=== PATIENT | female | born 1960 | race Caucasian/White ===

== ENCOUNTER 2016-10-20 13:52 | Observation (INO) | payer MEDICARE, MEDICAID ==
[~2016-10-20] VITALS: Ht 160 cm; Wt 88.5 kg
[~2016-10-20 13:52] MED LIST: ABILIFY20 MG PO; ABILIFY30 MG PO; ALBUTEROL2.5 MG/3 M; BENZONATATE200 MG PO; BUSPIRONE HCL30 MG PO; CLEOCIN HCL300 MG PO; CYCLOBENZAPRINE10 MG PO; DALIRESP500 MCG PO; FLEXERIL10 MG PO; HYDROCODONE-APA1 TAB PO; INDERAL10 MG PO; IPRAT-ALBUT 0.5-3 ML UPD; LEVAQUIN250 MG PO; LEVAQUIN500 MG PO; LEVOTHROID75 MCG PO; LEVOTHYROXINE137 MCG PO; MACROBID100 MG PO; MEDROL DOSE PACK4 MG PO; MUCINEX DM ER1 EAC1 PO; MUCINEX600 MG PO; MYCOSTATIN15 GM; NAPROSYN500 MG PO; NEURONTIN600 MG PO; NEXIUM40 MG PO; NICODERM C1 PATCH .1 TRANSDERM; NICODERM C1 PATCH .2 TRANSDERM; NORCO 10/325 TA1 TA1 PO; OMEPRAZOLE40 MG PO; OMNICEF300 MG PO; OXYBUTYNIN CHLOR5 MG PO; PERMETHRIN60 GM TOPICAL; PHENERGAN25 M1; PREDNISONE10 MG PO; PREDNISONE20 MG PO; PRINIVIL10 MG PO; PROAIR HFA8.5 GM INH; PROPRANOLOL HCL20 MG PO; PULMICORT0.5 MG/21 INH; PULMICORT0.5 MG/21 UPD; SINGULAIR10 MG PO; SYNTHROID75 MCG PO; TRICOR145 MG PO; VALIUM5 MG PO; VIIBRYD20 MG PO; ZOLOFT100 MG PO; ZOLOFT50 MG PO
[2016-10-20 15:10] LABS: BASOPHILS 0.4 % (0.0-2.0); HEMATOCRIT 39.5 % (36.0-48.0); HEMOGLOBIN 12.5 g/dL (12-16); IMMATURE GRANULOCYTES 0.2 % (0-5); LYMPHOCYTES 26.7 % (15-50); MCH 30.4 pg (26.0-34.0); MCHC 31.6 g/dL (31.0-37.0); MCV 96.1 fL (80.0-100.0); MEAN PLATELET VOLUME 11.1 fL (7.4-10.4); MONOCYTES 6.5 % (2-11); NEUTROPHILS 64.2 % (40-80); PLATELET COUNT 129 10x3/uL (130-400); RBC 4.11 10x6/uL (4.00-5.40); RDW 13.5 % (11.5-14.5); WBC 5.1 10x3/uL (4.8-10.8)
[2016-10-20 15:33] LABS: CALC OSMOLALITY 283 mosm/kg (275-300); CALCIUM 8.9 mg/dL (8.5-10.1); CHLORIDE - SERUM 103 mmol/L (98-107); CREATININE - SERUM 0.7 mg/dL (0.6-1.3); GLUCOSE 105 mg/dL (74-106); POTASSIUM - SERUM 4.1 mmol/L (3.5-5.1); SODIUM 143 mmol/L (136-145); UREA NITROGEN 11 mg/dL (7-18); eGFR NON AFRICAN AMERICAN > 90 mL/min (90-120)
[2016-10-20 15:34] LABS: TROPONIN-I < 0.017 ng/mL (0.000-0.060)
[2016-10-20 16:52] LABS: CKMB 0.2 U/L (0.0-3.6); CREATINE KINASE 20 UL (21-215)
[2016-10-20 17:54] LABS: APPEARANCE CLEAR (CLEAR); BILIRUBIN NEGATIVE (NEGATIVE); COLOR YELLOW (YELLOW); GLUCOSE NEGATIVE (NEGATIVE); KETONE NEGATIVE (NEGATIVE); LEUKOCYTE ESTERASE 1+ (NEGATIVE); NITRITE NEGATIVE (NEGATIVE); PROTEIN NEGATIVE (NEGATIVE); UROBILINOGEN NORMAL (NORMAL)
[2016-10-20 17:55] LABS: BACTERIA FEW /hpf (NONE SEEN); RED CELLS - URINE 0-5 /hpf (0-5); WHITE CELLS - URINE 0-5 /hpf (0-5)
--- NOTE | 2016-10-20 18:25 | NUR ---
PT TO ROOM VIA WHEELCHAIR FROM ER. ALERT AND ORIENTED. WILL ADMIT. TELE APPLIED.
[2016-10-20] MEDS ORDERED: VALIUM10 MG PO (18:29)
[2016-10-20] MEDS ORDERED: HYDROCODONE-APA1 TAB PO (18:29)
[2016-10-20] MEDS ORDERED: ATIVAN0.5 MG PO (18:29)
[2016-10-20 18:30] VITALS: BP 153/95; Ht 160 cm; Wt 88.5 kg
[2016-10-20] MEDS ORDERED: MELATONIN10 M1 PO (18:30)
[2016-10-20 18:39] LABS: CREATINE KINASE 15 UL (21-215); TROPONIN-I < 0.017 ng/mL (0.000-0.060)
[2016-10-20 20:52] VITALS: BP 131/81
--- NOTE | 2016-10-20 21:20 | NUR ---
PT AWAKE, ALERT, ORIENTED, CONCERNED THAT SHE HAS NOT RECEIVED ANY OF HER MEDICATIONS. I HAVE PAGED ROSALES POLLOCK, SALES REPRESENTATIVE DOOR TO DOOR FOR [employer]ALTHAR FOR ORDERS. PT IS REQUESTING HER ABILIFY, LORAZEPAM, NORCO, AND MELATONIN. WILL CONTINUE TO MONITOR CLOSELY. BED LOW, CALL LIGHT IN REACH, SIDE RAILS X 2, HOB 30 DEGREES. PT STATES SHE FEELS HER HEART FLUTTERING, HOWEVER WHEN CHECKED WITH DISABILITY BENEFITS SPECIALIST, SHE IS 80'S NS.
[2016-10-20 23:51] LABS: CREATINE KINASE 40 UL (21-215); TROPONIN-I < 0.017 ng/mL (0.000-0.060)
[2016-10-21 01:33] VITALS: BP 100/71
[2016-10-21 05:29] LABS: CKMB 0.1 U/L (0.0-3.6); CREATINE KINASE 16 UL (21-215); PHOSPHOROUS 5.3 mg/dL (2.5-4.9); POTASSIUM - SERUM 4.2 mmol/L (3.5-5.1)
[2016-10-21 05:35] LABS: TROPONIN-I < 0.017 ng/mL (0.000-0.060)
[2016-10-21 06:04] VITALS: BP 135/93
[2016-10-21 07:47] VITALS: BP 131/69
[2016-10-21 11:31] VITALS: BP 116/77
[2016-10-21] MEDS ORDERED: TOPROL XL25 MG PO (12:39)
--- NOTE | 2016-10-21 13:47 | NUR ---
Patient Name: JOJO CORREA Admission Status: ER Accout number: [id number] Admission Date: 10-20-2016 : 1960 Admission Diagnosis: Attending: BREANA Current LOS: 1 Anticipated DC Date: 10-21-2016 Planned Disposition: Home Primary Insurance: MEDICARE A & B Discharge Planning Comments: * Is the patient Alert and Oriented? Yes 0 * How many steps to enter\exit or inside your home? 2 0 * PCP DR. LOZADA 0 * Pharmacy [facility] [place] 0 * Preadmission Environment Home with Family 0 * ADLs Independent 0 * Equipment Nebulizer Oxygen 0 * Other Equipment HOME OXYGEN ONLY [facility] - MEDICAL EQUIPMENT PROVIDER PREFERENCE 0 * List name and contact numbers for known caregivers / representatives who currently or will assist patient after discharge: JOELLE CORREA, COUSIN, 0 * Community resources currently utilized Other 0 * Please name any agencies selected above. [facility] 0 * Additional services required to return to the preadmission environment? No 0 * Can the patient safely return to the preadmission environment? Yes 0 * Has this patient been hospitalized within the prior 30 days at any hospital? No 0 CM MET WITH PT IN ROOM TO DISCUSS DISCHARGE PLANNING AND NEEDS. PT REPORTS LIVING AT HOME INDEPENDENTLY WITH HER COUSIN. PT HAS NEBULIZER AND HOME OXYGEN FROM [facility]. PT HAS NO OUTSIDE SERVICES ASSISTING IN THE HOME. CM DISCUSSED AVAILABILITY OF HOME HEALTH, REHAB SERVICES AND MEDICAL EQUIPMENT. PT DENIES DISCHARGE NEEDS, REPORTS HAVING NO WAY HOME FOR DISCHARGE TODAY. PT HAS CALLED HER COUSIN WHO CANNOT FIND ANYONE TO PICK HER UP. PT USES [facility] FOR HER MEDICAL APPOINTMENTS. CM CALLED [facility], , SPOKE TO GERONIMO WHO ARRANGED TRANSPORTATION FOR TODAY BETWEEN 2PM AND 3PM, CONFIRMATION NUMBER [id number]. PT AND BEDSIDE NURSE NOTIFIED. NO FURTHER DISCHARGE NEEDS IDENTIFIED. Tufting Creeler: David Dutton
--- NOTE | 2016-10-21 14:36 | CN ---
PATIENT NAME:JOJO GOYAL MEDICAL RECORD: [id number] : 58 LOCATION:D.M2 D.2133 ADMIT DATE: 10/20/16 ACCOUNT: [id number] CONSULTING PHYSICIAN: ADEEL GARCIA MD REFERRING PHYSICIAN: TRACEY TOUSSAINT MD DATE OF CONSULTATION: 10/21/2016 HISTORY OF PRESENT ILLNESS: A 56-year-old female with previous history of hypertension, was started on medication at that time. By her report engaged in lifestyle modification including exercise and adjustment in diet and was actually off the medications, has been off for quite some time. Admitted yesterday with hypertension and left shoulder pain. Shoulder pain is more musculoskeletal. She also reports of intermittent palpitations, flutter, occasional PVC on exam, suspect this is just simply increased sensation from compensatory pause loading in the face of elevated blood pressure. We are asked to see her concerning her cardiovascular status. PAST MEDICAL HISTORY: Includes: 1. History of hypertension, on no medications currently. 2. Anxiety. 3. Bipolar disorder. 4. Chronic obstructive pulmonary disease. 5. Hypothyroidism, on replacement. MEDICATIONS: Typically include: 1. Synthroid 137 mcg every day. 2. Prilosec 20 mg p.o. every day. 3. Zoloft 50 every day. 4. Ativan 0.5 q.6 p.r.n. 5. [place] 10/325 q.6 hours p.r.n. 6. Neurontin 600 t.i.d. 7. Valium 10 p.o. b.i.d. p.r.n. 8. Abilify 30 q.h.s. 9. Duoneb q.4. 10. ProAir 2 puffs q.6 hours p.r.n. ALLERGIES: KEFLEX, TRAMADOL. SOCIAL HISTORY: She is a nondrinker, does smoke less than a pack a day. She is able to take care of her ADLs. No set exercise program. REVIEW OF SYSTEMS: The patient reports easy bruising but reports no swollen glands. The patient reports no fever, no night sweats, no significant weight gain, no significant weight loss. No significant exercise tolerance. The patient reports no dry eyes, no irritation, no vision change. Patient reports no difficulty hearing and no ear pain. Patient reports no frequent nose bleeds or nose and sinus problems. Patient reports on arm pain on exertion. No shortness of breath while lying down. No history of heart murmur. Patient reports no cough, no wheezing or coughing up blood. Patient reports no abdominal pain, no vomiting. Normal appetite. No diarrhea and not vomiting blood. No nausea and no constipation. Patient reports no incontinence. No difficulty urinating. No hematuria. No increased frequency. Patient reports no muscle aches. No weakness, no arthralgias, no back pain. No swelling of the extremities. Patient reports no abnormal mole, no jaundice, no rashes. Reports no loss of consciousness. No weakness and no numbness. No seizures, dizziness, CONSULT REPORT [id number] SUNNY,JOJO ИРИНА or headaches. The patient reports no depression, no sleep disturbance, feeling safe in a relationship and no alcohol abuse. Patient reports on fatigue. Reports no runny nose or sinus pressure. No itching, no hives, and no frequent sneezing. PHYSICAL EXAMINATION: GENERAL: Pleasant female in no acute distress, somewhat blunted affect. VITAL SIGNS: Blood pressure 131/69, pulse 62 and regular. HEENT: Normocephalic, atraumatic. NECK: No JVD or bruit. HEART: Regular. LUNGS: Jacobs are clear. ABDOMEN: Soft, nontender. EXTREMITIES: Pulse well preserved, 2+ with no edema. NEUROLOGICAL: Grossly intact. DIAGNOSTIC DATA: ECG is normal. Serial cardiac enzymes are negative. IMPRESSION: Recurrent hypertension. At this point in time, I would start low dose beta blockade for both hypertensive and antiarrhythmic effect. We would check echocardiographic study to check for left ventricular mass to help guide therapy. A long discussion readjusting lifestyle to minimize medications, although from talking to Ms. Goyal not sure this is going to be successful long-term. I would consider outpatient nuclear study at some point. Okay to discharge from a cardiovascular standpoint. TRANSINT:[id number] Voice Confirmation ID: [id number] DOCUMENT ID: [id number] ADEEL GARCIA MD at 1436 CC: [id number] DICTATION DATE: 10/21/[address] PHOTOGRAPHER: 10/21/16 1032 ADM IN [place] [id number] [place] [address]
--- NOTE | 2016-10-21 15:01 | NUR ---
DISCHARGE INSTRUCTIONS GIVEN TO PATIENT WAITING ON [facility]. UNDERSTANDING INSTRUCTIONS. TO AUCTIONEER TOBACCO VIA WC.
--- NOTE | 2016-10-27 08:42 | EC ---
PATIENT:JOJO CORREA DATE OF SERVICE: 10/20/16 SEX: F MEDICAL RECORD: [id number] DATE OF : [birth year] LOCATION:D.M2 D.213 AGE OF PATIENT: 56 ADMISSION DATE: 10/20/16 REFERRING PHYSICIAN: INTERPRETING PHYSICIAN: ADEEL GARCIA MD ECHOCARDIOGRAM REPORT ECHO CHARGES 4 ECHO COMPLETE CLINICAL DIAGNOSIS: HTN/LVH/PALPITATIONS ECHOCARDIOGRAPHIC MEASUREMENTS (adult normal given) AC root (d.<3.7cm) 3.2 LV Septum d (<1.2 cm> 1.9 Valve Excursion 1.0 LV Septum (systole) 2.2 Left Atria (s.<4.0cm> 4.1 LVPW d(<1.2cm) 1.7 RV (d.<2.3cm) 3.2 LVPW (sytole) 1.9 LV diastole(<5.6CM) 4.3 MV E-F(>70mm/sec) LV systole 3.1 LVOT Diameter 1.6 MV exc.(>10mm) 1.3 Est.ejection fraction (50-75%) Pericardial Effusion N DOPPLER: LVIT A 81.0 E 56.0 LA RVSP 19 LVOT 89 AOP1/2T Asc. Ao 68 RVOT 128 RA PA 105 AV Gradient Peak 6.59 AV Mean 3.61 AV Area 1.4 MV Gradient Peak 3.36 MV Mean 1.13 MV Area COMMENTS: Tire Repair Mechanic: Ronal MATTHEWS General Operator:10 Dr. Lopez TAPE# PACS DATE OF SERVICE: 10/21/2016 Adequate 2D echo, color flow Doppler and M-Mode. LVH present. LV internal dimensions are normal. Wall motion is normal. EF is greater than ____. Aortic valve is tricuspid. No stenosis by Doppler interrogation. The left atrium is normal. Mitral valve shows no prolapse. Trace MR. Right-sided chamber is normal. Trace TR. TRANSINT:[id number] Voice Confirmation ID: [id number] DOCUMENT ID: [id number] ECHOCARDIOGRAM REPORT [id number] JOJO CORREAADEEL ROLAND MD at 0842 CC: [id number] DICTATION DATE: 10/21/16 1314 BANK CONSULTANT: 10/22/16 0101 DIS IN 10/21/16 [facility] [address] [place] [address]
== END 2016-10-21 15:03 | disposition home or self-care (01) ==
LOC: D.ER 13:52 → D.M2 15:57 → OBSVTIME 15:57 → D.M2 15:57
PROVIDERS: Nurse Practitioner Acute Care; ADMIT Family Medicine
DX: I10 Essential (primary) hypertension (principal); R00.2 Palpitations; G89.29 Other chronic pain; F41.9 Anxiety disorder, unspecified; F31.9 Bipolar disorder, unspecified; J44.9 Chronic obstructive pulmonary disease, unspecified; E03.9 Hypothyroidism, unspecified; M79.7 Fibromyalgia; F60.3 Borderline personality disorder; G47.33 Obstructive sleep apnea (adult) (pediatric); Z72.0 Tobacco use

== ENCOUNTER 2016-11-02 13:40 | Emergency (ER) | payer MEDICARE, MEDICAID ==
[2016-10-20 18:30] VITALS: BMI 34.6
[~2016-11-02 13:40] MED LIST changes: +ATIVAN0.5 MG PO; +MELATONIN10 M1 PO; +TOPROL XL25 MG PO; +VALIUM10 MG PO
[2016-11-02 15:17] LABS: BASOPHILS 0.5 % (0.0-2.0); EOSINOPHILS 2.1 % (0-7); HEMOGLOBIN 12.1 g/dL (12-16); IMMATURE GRANULOCYTES 0.2 % (0-5); LYMPHOCYTES 21.7 % (15-50); MCH 30.6 pg (26.0-34.0); MCHC 31.8 g/dL (31.0-37.0); MEAN PLATELET VOLUME 11.3 fL (7.4-10.4); MONOCYTES 4.6 % (2-11); NEUTROPHILS 70.9 % (40-80); PLATELET COUNT 137 10x3/uL (130-400); RBC 3.96 10x6/uL (4.00-5.40); RDW 13.5 % (11.5-14.5); WBC 5.6 10x3/uL (4.8-10.8)
[2016-11-02 15:31] LABS: ALBUMIN 3.5 g/dL (3.4-5.0); ALKALINE PHOSPHATASE 92 U/L (46-116); ALT (SGPT) 35 U/L (10-68); BILIRUBIN - TOTAL 0.38 mg/dL (0.2-1.3); CALC OSMOLALITY 280 mosm/kg (275-300); CALCIUM 8.6 mg/dL (8.5-10.1); CARBON DIOXIDE 33.4 mmol/L (21.0-32.0); CHLORIDE - SERUM 104 mmol/L (98-107); CREATININE - SERUM 0.7 mg/dL (0.6-1.3); GLUCOSE 105 mg/dL (74-106); SODIUM 142 mmol/L (136-145); UREA NITROGEN 8 mg/dL (7-18); eGFR NON AFRICAN AMERICAN > 90 mL/min (90-120)
[2016-11-03] MEDS ORDERED: BACLOFEN10 MG PO (17:19)
== END 2016-11-02 18:41 | disposition home or self-care (01) ==
LOC: D.ER 13:40
PROVIDERS: Physician Assistant
DX: I10 Essential (primary) hypertension (principal); R51 Headache; J44.9 Chronic obstructive pulmonary disease, unspecified; F17.200 Nicotine dependence, unspecified, uncomplicated

== ENCOUNTER 2016-11-03 11:48 | Observation (INO) | payer MEDICARE ==
[~2016-11-03] VITALS: Ht 160 cm; Wt 88.5 kg
[~2016-11-03 11:48] MED LIST changes: -OMEPRAZOLE40 MG PO; +PRILOSEC20 MG PO
[2016-11-03 13:06] LABS: UDS - AMPHET NEGATIVE QUAL (NEGATIVE); UDS - BARB NEGATIVE QUAL (NEGATIVE); UDS - BENZO POSITIVE QUAL (NEGATIVE); UDS - COCAINE NEGATIVE QUAL (NEGATIVE); UDS - METH NEGATIVE QUAL (NEGATIVE); UDS - OPIATE POSITIVE QUAL (NEGATIVE); UDS - PCP NEGATIVE QUAL (NEGATIVE); UDS - THC NEGATIVE QUAL (NEGATIVE)
[2016-11-03 13:13] LABS: BASOPHILS 0.2 % (0.0-2.0); EOSINOPHILS 2.4 % (0-7); HEMOGLOBIN 11.8 g/dL (12-16); IMMATURE GRANULOCYTES 0.2 % (0-5); LYMPHOCYTES 29.6 % (15-50); MCH 30.6 pg (26.0-34.0); MCHC 31.1 g/dL (31.0-37.0); MEAN PLATELET VOLUME 11.3 fL (7.4-10.4); MONOCYTES 5.8 % (2-11); NEUTROPHILS 61.8 % (40-80); PLATELET COUNT 135 10x3/uL (130-400); RBC 3.85 10x6/uL (4.00-5.40)
[2016-11-03 13:22] LABS: MCV 98.7 fL (80.0-100.0)
[2016-11-03 13:29] LABS: ALBUMIN 3.5 g/dL (3.4-5.0); ALKALINE PHOSPHATASE 90 U/L (46-116); ALT (SGPT) 35 U/L (10-68); BILIRUBIN - TOTAL 0.28 mg/dL (0.2-1.3); CALC OSMOLALITY 281 mosm/kg (275-300); CALCIUM 8.3 mg/dL (8.5-10.1); CARBON DIOXIDE 35.3 mmol/L (21.0-32.0); CHLORIDE - SERUM 103 mmol/L (98-107); CREATININE - SERUM 0.8 mg/dL (0.6-1.3); GLUCOSE 109 mg/dL (74-106); POTASSIUM - SERUM 4.1 mmol/L (3.5-5.1); SODIUM 141 mmol/L (136-145); eGFR NON AFRICAN AMERICAN 78 mL/min (90-120)
[2016-11-03 13:30] LABS: APPEARANCE HAZY (CLEAR); BILIRUBIN NEGATIVE (NEGATIVE); COLOR YELLOW (YELLOW); GLUCOSE NEGATIVE (NEGATIVE); KETONE NEGATIVE (NEGATIVE); LEUKOCYTE ESTERASE 1+ (NEGATIVE); NITRITE NEGATIVE (NEGATIVE); PROTEIN NEGATIVE (NEGATIVE); SPECIFIC GRAVITY 1.015 (1.005-1.020)
[2016-11-03 13:31] LABS: BACTERIA MODERATE /hpf (NONE SEEN); EPITHELIAL CELLS 0-5 /hpf (0-5); GRANULAR CAST OCC /lpf (NONE SEEN); MUCUS >1+ /lpf (NONE SEEN)
[2016-11-03 13:37] LABS: T4 THYROXIN - FREE 1.12 ng/dL (0.76-1.46); T4 THYROXINE 9.3 ug/dL (4.7-13.3); THYROID STIMULATING HORMONE 0.43 uIU/mL (0.36-3.74)
[2016-11-03 13:44] LABS: UREA NITROGEN 12 mg/dL (7-18)
--- NOTE | 2016-11-03 16:42 | NUR ---
RECEIVED TO ROOM 2215 FROM ER VIA . ORIENTED TO ROOM AND CALL LIGHT SYSTEM. VSS. CALL LIGHT IN REACH. WILL CONTINUE WITH PLAN OF CARE.
[2016-11-03 16:46] VITALS: BP 110/71
[2016-11-03 17:15] VITALS: BP 110/71; Ht 160 cm; Wt 88.5 kg
[2016-11-03] MEDS ORDERED: BACLOFEN10 MG PO (17:19)
--- NOTE | 2016-11-03 17:20 | NUR ---
OFFERED SCDs BUT REFUSED
--- NOTE | 2016-11-03 18:23 | NUR ---
NORCO PO PER C/O PAIN OF 8 IN LOWER BACK. NO OTHER CHANGES IN INITIAL ASSESSMENT. STILL REFUSES SCDs. PASSWORD OBTAINED AND PLACED IN CHART. CALL LIGHT IN REACH. WILL CONTINUE WITH PLAN OF CARE.
[2016-11-03 19:00] VITALS: BP 137/70
--- NOTE | 2016-11-03 20:00 | NUR ---
ASSESSMENT PER FLOWSHEET. IV PATENT RT THUMB OF NS AT 75CC'S/HR SITE CLEAR. REFUSES SCD'S. SITTING UPRIGHT IN BED SR UP X2 CALL LIGHT WITHIN REACH.
--- NOTE | 2016-11-03 20:30 | NUR ---
MEDS GIVEN PER MAR.
--- NOTE | 2016-11-04 | NUR ---
EYES CLOSED RESPIRATIONS WITH EASE AND UNLABORED.
--- NOTE | 2016-11-04 03:15 | NUR ---
EYES CLOSED RESPIRATIONS WITH EASE AND UNLABORED. DENIES NEEDS.
[2016-11-04 06:24] LABS: BASOPHILS 0.3 % (0.0-2.0); EOSINOPHILS 2.3 % (0-7); HEMATOCRIT 35.6 % (36.0-48.0); HEMOGLOBIN 11.3 g/dL (12-16); IMMATURE GRANULOCYTES 0.3 % (0-5); LYMPHOCYTES 33.4 % (15-50); MCHC 31.7 g/dL (31.0-37.0); MCV 97.8 fL (80.0-100.0); MEAN PLATELET VOLUME 11.4 fL (7.4-10.4); MONOCYTES 4.6 % (2-11); NEUTROPHILS 59.1 % (40-80); PLATELET COUNT 116 10x3/uL (130-400); RBC 3.64 10x6/uL (4.00-5.40); RDW 13.7 % (11.5-14.5)
[2016-11-04 06:37] LABS: WBC 3.5 10x3/uL (4.8-10.8)
[2016-11-04 06:48] LABS: ALBUMIN 2.9 g/dL (3.4-5.0); ALKALINE PHOSPHATASE 80 U/L (46-116); ALT (SGPT) 32 U/L (10-68); CALC OSMOLALITY 280 mosm/kg (275-300); CALCIUM 8.4 mg/dL (8.5-10.1); CARBON DIOXIDE 32.7 mmol/L (21.0-32.0); CHLORIDE - SERUM 103 mmol/L (98-107); CREATININE - SERUM 0.6 mg/dL (0.6-1.3); GLUCOSE 109 mg/dL (74-106); POTASSIUM - SERUM 3.8 mmol/L (3.5-5.1); PROTEIN - SERUM 6.1 g/dL (6.4-8.2); SODIUM 141 mmol/L (136-145); UREA NITROGEN 10 mg/dL (7-18); eGFR NON AFRICAN AMERICAN > 90 mL/min (90-120)
--- NOTE | 2016-11-04 07:15 | NUR ---
ASSESSMENT PER FLOW SHEET.PT VERY HARD TO WAKE UP THIS AM.SHE OPENS HER EYES INT.SHE IS WITHOUT SIGNS OF PAIN OR DISTRESS.BRUISES AND SCRATCHES NOTED TO BILATERAL ARMS.CALL LIGHT IN REACH.MONITOR
[2016-11-04 09:52] VITALS: BP 189/97
[2016-11-04 11:48] VITALS: BP 171/97
--- NOTE | 2016-11-04 13:55 | NUR ---
MEDS ORDERED FOR BP 190/95
[2016-11-04 13:58] VITALS: BP 190/95
--- NOTE | 2016-11-04 14:50 | NUR ---
REPEAT BP 149/78
[2016-11-04] MEDS ORDERED: CATAPRES0.1 MG PO (14:55)
--- NOTE | 2016-11-04 15:31 | NUR ---
DISCHARGE INSTRUCTIONS,STATES UNDERSTANDING.IV DCD WITH CATH INTACT.DANITA CALLED [facility] TO PICK PT UP FOR TRANSPORT.
--- NOTE | 2016-11-04 15:41 | NUR ---
CM CALLED THE [facility] BUS FOR PATIENT AND THEY ARE PICKING UP DUNIA AFTER 3:30. PATIENT IS READY AND NURSE (ERIAK) AWARE.
[2016-11-04 15:49] VITALS: BP 149/78
--- NOTE | 2016-11-04 16:04 | NUR ---
LEFT UNIT VIA WHEELCHAIR FOR TRANSPORT HOME.
== END 2016-11-04 16:04 | disposition home or self-care (01) ==
LOC: D.ER 11:48 → OBSVTIME 15:30 → D.MS 15:30
PROVIDERS: Emergency Medicine; ADMIT Family Medicine
DX: I95.2 Hypotension due to drugs (principal); G47.33 Obstructive sleep apnea (adult) (pediatric); F31.9 Bipolar disorder, unspecified; F60.3 Borderline personality disorder; M79.7 Fibromyalgia; G89.29 Other chronic pain; J44.9 Chronic obstructive pulmonary disease, unspecified; I10 Essential (primary) hypertension; E03.9 Hypothyroidism, unspecified; J45.909 Unspecified asthma, uncomplicated; F41.9 Anxiety disorder, unspecified; R41.82 Altered mental status, unspecified

== ENCOUNTER 2016-11-17 08:31 | Day surgery (SDC) | payer MEDICARE ==
[~2016-11-17] VITALS: Ht 160 cm; Wt 89.1 kg
[~2016-11-17 08:31] MED LIST changes: +BACLOFEN10 MG PO; +CATAPRES0.1 MG PO
[2016-11-17 09:15] VITALS: BP 138/92; Ht 160 cm; Wt 89.1 kg
[2016-11-17 09:46] LABS: HEMOGLOBIN 13.4 g/dL (12-16); MCH 31.1 pg (26.0-34.0); MCHC 32.7 g/dL (31.0-37.0); MCV 95.1 fL (80.0-100.0); MEAN PLATELET VOLUME 12.1 fL (7.4-10.4); RBC 4.31 10x6/uL (4.00-5.40); RDW 13.3 % (11.5-14.5); WBC 4.9 10x3/uL (4.8-10.8)
--- NOTE | 2016-11-17 11:46 | NUR ---
1140 NORCO 10MG PO GIVEN FOR BACK/LEG PAIN RATED 8/10 ORDERED. PT. DRINKING COLA. PT. HAS FAMILY IN ROOM
--- NOTE | 2016-11-17 12:39 | NUR ---
1220--PT VOIDS WITHOUT DIFFICULTY, IV DC'D. PT UP TP DRESS AT THIS TIME. JUANJO FINNEY 1240--DISCHARGE INSTRUCTIONS GIVEN, PT VERBALIZES UNDERSTANDING. PT OFF UNIT VIA WC. JUANJO FINNEY
--- NOTE | 2016-11-22 13:01 | OP ---
PATIENT NAME: JOJO CORERA MEDICAL RECORD: [id number] :58 LOCATION:[facility] ADMISSION DATE: SURGEON: DAVID MARMOLEJO DO DATE OF OPERATION: 11/17/2016 PROCEDURE: EGD with biopsies. SCOPE: Olympus video gastroscope. MEDICATIONS: Propofol 200 mg IV per anesthesia. INDICATIONS: Dysphagia, heartburn, nausea, generalized abdominal pain. FINDINGS: Informed consent was given. The patient was made comfortable with the above medication. After reaching an adequate level of sedation by slow IV push, the patient was placed on her left side. The endoscope was then advanced under direct visualization to the second portion of the duodenum. In the proximal third of the esophagus, she did have 2 patches of heterotopic gastric mucosa. The middle and distal thirds of the esophagus appeared normal. At the GE junction, there was some very mild LA class A reflux-induced esophagitis at the GE junction. A small sliding hiatal hernia could be visualized from the distal esophagus. Endoscope was advanced through the GE junction and retroflexed to confirm that there was a small sliding hiatal hernia involving the cardia. In the stomach, there was diffuse granularity and erythema consistent with possible gastritis. Random biopsies were taken from the body, incisura, and antrum of the stomach. They were sent for histology and to rule out H. pylori. The endoscope was advanced through the pylorus into the duodenum where the bulb and second portion of the duodenum appeared normal. The endoscope was then withdrawn from the patient. The patient tolerated the procedure well and there were no complications. ESTIMATED BLOOD LOSS: Less than 3 cc. IMPRESSION: 1. Heterotopic gastric mucosa present in the proximal third of the esophagus. 2. Mild LA class A reflux-induced esophagitis at the GE junction. 3. Small sliding hiatal hernia involving the cardia of the stomach. 4. Diffuse gastric granularity and erythema consistent with possible gastritis, biopsies taken. PLAN AND RECOMMENDATIONS: 1. Discharge home when recovery parameters are met. 2. GERD diet and reflux precautions. 3. Increase omeprazole to 40 mg daily times 8 weeks and decrease back to 20 mg daily with additional supplementation of Zantac 150 mg q.h.s. while taking omeprazole in the morning if needed for symptoms. 4. Barium esophagram regarding the dysphagia. TRANSINT:[id number] Voice Confirmation ID: [id number] DOCUMENT ID: [id number] OPERATIVE REPORT [id number] JOJO CORREA NATHAN A DO at 1301 CC: [id number] DICTATION DATE: 11/17/16 1100 EQUIPMENT MAINTENANCE SUPERINTENDENT: 11/17/16 1305 [facility] 11/17/16 [place] [id number] [place] [id number]
== END 2016-11-17 12:40 | disposition home or self-care (01) ==
LOC: D.OPS 08:31
PROVIDERS: Anesthesiology
DX: R13.10 Dysphagia, unspecified (principal); K21.0 Gastro-esophageal reflux disease with esophagitis; R11.0 Nausea; R10.9 Unspecified abdominal pain; K44.9 Diaphragmatic hernia without obstruction or gangrene; J45.909 Unspecified asthma, uncomplicated; G47.30 Sleep apnea, unspecified; I10 Essential (primary) hypertension; E03.9 Hypothyroidism, unspecified; E66.9 Obesity, unspecified; Z68.34 Body mass index [BMI] 34.0-34.9, adult

== ENCOUNTER 2016-11-19 14:11 | Emergency (ER) | payer MEDICARE ==
[2016-11-17 09:15] VITALS: BMI 34.8
[2016-11-19 15:16] LABS: BASOPHILS 0.2 % (0-2); EOSINOPHILS 2.9 % (0-7); HEMATOCRIT 40.4 % (36.0-48.0); HEMOGLOBIN 13.1 g/dL (12-16); LYMPHOCYTES 27.3 % (15-50); MCH 31.3 pg (26.0-34.0); MCHC 32.4 g/dL (31.0-37.0); MCV 96.7 fL (80.0-100.0); MEAN PLATELET VOLUME 11.3 fL (7.4-10.4); MONOCYTES 6.9 % (2-11); NEUTROPHILS 62.7 % (40-80); PLATELET COUNT 150 10x3/uL (130-400); RBC 4.18 10x6/uL (4.00-5.40); RDW 13.2 % (11.5-14.5); WBC 4.5 10x3/uL (4.8-10.8)
[2016-11-19 15:36] LABS: APPEARANCE CLEAR (CLEAR); BACTERIA MODERATE /hpf (NONE SEEN); BILIRUBIN NEGATIVE (NEGATIVE); COLOR YELLOW (YELLOW); GLUCOSE NEGATIVE (NEGATIVE); KETONE NEGATIVE (NEGATIVE); LEUKOCYTE ESTERASE TRACE (NEGATIVE); NITRITE NEGATIVE (NEGATIVE); PROTEIN TRACE mg/dL (NEGATIVE); RED CELLS - URINE 0-5 /hpf (0-5); SPECIFIC GRAVITY 1.015 (1.005-1.020); UROBILINOGEN NORMAL (NORMAL)
[2016-11-19 15:43] LABS: ALBUMIN 3.2 g/dL (3.4-5.0); ANION GAP 12.3 mmol/L (8-16); BILIRUBIN - TOTAL 0.48 mg/dL (0.2-1.3); CALCIUM 7.8 mg/dL (8.5-10.1); CARBON DIOXIDE 27.1 mmol/L (21.0-32.0); CREATININE - SERUM 0.9 mg/dL (0.6-1.3); POTASSIUM - SERUM 3.4 mmol/L (3.5-5.1); PROTEIN - SERUM 6.7 g/dL (6.4-8.2)
== END 2016-11-19 19:12 | disposition home or self-care (01) ==
LOC: D.ER 14:11
PROVIDERS: Family Medicine
DX: E86.0 Dehydration (principal); R53.1 Weakness; J44.9 Chronic obstructive pulmonary disease, unspecified; I10 Essential (primary) hypertension; M79.7 Fibromyalgia; F32.9 Major depressive disorder, single episode, unspecified

== ENCOUNTER 2016-11-26 20:23 | Observation (INO) | payer MEDICARE ==
[~2016-11-26] VITALS: Ht 160 cm; Wt 90.1 kg
[~2016-11-26 20:23] MED LIST changes: +OMEPRAZOLE40 MG PO; -PRILOSEC20 MG PO
[2016-11-26 22:28] LABS: BASOPHILS 0.4 % (0-2); EOSINOPHILS 2.3 % (0-7); HEMATOCRIT 39.6 % (36.0-48.0); HEMOGLOBIN 12.8 g/dL (12-16); IMMATURE GRANULOCYTES 0.1 % (0-5); MCH 31.2 pg (26.0-34.0); MCHC 32.3 g/dL (31.0-37.0); MCV 96.6 fL (80.0-100.0); MEAN PLATELET VOLUME 11.3 fL (7.4-10.4); MONOCYTES 6.7 % (2-11); NEUTROPHILS 56.5 % (40-80); PLATELET COUNT 155 10x3/uL (130-400); RDW 13.5 % (11.5-14.5); WBC 6.9 10x3/uL (4.8-10.8)
[2016-11-26 22:57] LABS: ALBUMIN 3.4 g/dL (3.4-5.0); ALKALINE PHOSPHATASE 83 U/L (46-116); ALT (SGPT) 28 U/L (10-68); BILIRUBIN - TOTAL 0.27 mg/dL (0.2-1.3); CALC OSMOLALITY 281 mosm/kg (275-300); CALCIUM 8.2 mg/dL (8.5-10.1); CARBON DIOXIDE 35.4 mmol/L (21.0-32.0); CHLORIDE - SERUM 105 mmol/L (98-107); GLUCOSE 100 mg/dL (74-106); POTASSIUM - SERUM 3.3 mmol/L (3.5-5.1); PROTEIN - SERUM 6.6 g/dL (6.4-8.2); SODIUM 141 mmol/L (136-145); UREA NITROGEN 14 mg/dL (7-18); eGFR NON AFRICAN AMERICAN 61 mL/min (90-120)
[2016-11-26 23:07] LABS: THYROID STIMULATING HORMONE 1.31 uIU/mL (0.36-3.74); TROPONIN-I < 0.017 ng/mL (0.000-0.060)
[2016-11-27] VITALS (7 sets, daily range): BP systolic 104–152; BP diastolic 52–88; Ht 160 cm; Wt 90.1 kg
[2016-11-27] MEDS ORDERED: OXYBUTYNIN CHLOR5 MG PO
--- NOTE | 2016-11-27 00:15 | NUR ---
REC FROM ER VIA WC. ALERT/ORIENTED X 4. AMBULATED TO BED WITH STEADY GAIT. IV IN L ARM INTACT SL. REQUESTED PAIN MEDICATION FOR C/O CHRONIC BACK PAIN LEVEL 7 ON NUMBER SCALE. EDUCATED ABOUT THE BLOOD PRESSURE LOWERING EFFECTS OF HYDROCODONE. CHECKED HER B/P AT 104/62. PULSE AT 55. REQUESTED SOME ICE WATER AND LIGHTS OFF TO SLEEP. ORIENTED TO ROOM AND CALL LIGHT.
--- NOTE | 2016-11-27 02:16 | NUR ---
RESTING ON RIGHT SIDE WITH EYES CLOSED SNORING LIGHTLY. AROUSES EASILY, DENIES ANY NEEDS. NS INFUSING AT 100ML/HR TO LEFT AC.
--- NOTE | 2016-11-27 10:46 | NUR ---
PATIENT WONDERING WHEN SHE WILL GET AM MEDS, SHE SAYS MY ANXIETY IS HIGH. PAGED DR. SUERO.
--- NOTE | 2016-11-27 10:54 | NUR ---
DR. SUERO CALLED BACK AND STATED HIS NURSE PRACTITIONER ROSALES WILL BE HERE SHORTLY AND SHE WILL TAKE OF IT.
--- NOTE | 2016-11-27 11:00 | NUR ---
LET PATIENT KNOW THAT I SPOKE TO DR. SUERO AND NURSE PRACTITIONER WILL BE THE ONE TO MAKE ROUNDS SOON.
[2016-11-27 12:29] LABS: CKMB 0.3 U/L (0.0-3.6); CREATINE KINASE 17 UL (21-215)
[2016-11-27 12:30] LABS: TROPONIN-I < 0.017 ng/mL (0.000-0.060)
--- NOTE | 2016-11-27 12:31 | NUR ---
PATIENT IS ANXIOUS AND SHE SAYS SHE WOULD LIKE AN ATIVAN, PROVIDED 0.5 MG ATIVAN PO NOW.
--- NOTE | 2016-11-27 12:37 | NUR ---
PATIENT REQUESTS PAIN MED SHE REFERS TO IT "MY HYDRO". PROVIDED PATIENT NORCO PER ORDER, SHE RATES HER PAIN 8/10 IN BACK MOSTLY.
--- NOTE | 2016-11-27 14:00 | NUR ---
PATIENT'S IV IN LEFT AC AND SHE HAS REQUESTED THAT IT BE MOVED. WILL LOOK SHORTLY.
--- NOTE | 2016-11-27 15:54 | NUR ---
PATIENT REQUESTS IV BE RESITED, DENNIS HENDRIX RN IN TO LOOK AT RIGHT FOREARM, ATTEMPTED X1 UNSUCCESSFUL. WILL GET ANOTHER MURSE TO TRY.
--- NOTE | 2016-11-27 16:00 | NUR ---
TELEMETRY ORDERED, BUT NO AVAILABILITY UNLESS PATIENT HAS ACTIVE CHEST PAIN. SCD'S ON PATIENT.
--- NOTE | 2016-11-27 16:32 | NUR ---
PATIENT REQUESTS MED FOR NAUSEA, ZOFRAN PROVIDED, SEE MAR.
--- NOTE | 2016-11-27 17:36 | NUR ---
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
[2016-11-27 18:53] LABS: CKMB 0.2 U/L (0.0-3.6); CREATINE KINASE 16 UL (21-215); TROPONIN-I < 0.017 ng/mL (0.000-0.060)
--- NOTE | 2016-11-27 23:21 | NUR ---
NURSE ROUNDS 20:00 - PT AWAKE, ALERT, ORIENTED, LYING IN BED REQUESTING HER PRN PAIN MEDICATION AND BEDTIME MEDS. PT WAS HARD TO UNDERSTAND SHE WAS SLURRING HER WORDS. I TOLD HER SHE COULD HAVE HER PRN NORCO IF HER B/P WAS STABLE, AND SHE WAS NOT FEELING SYNCOPAL. PT AGREED. CONTINUE TO MONITOR CLOSELY. BED LOW, CALL LIGHT IN REACH, SIDE RAILS X 2, HOB 20 DEGREES.
--- NOTE | 2016-11-27 23:31 | NUR ---
PRN MELATONIN REQUESTED BY PT HELD R/T PT SLEEPING WHEN I WENT IN TO ADMINISTER IT. CONTINUE TO MONITOR CLOSELY.
[2016-11-28] VITALS (8 sets, daily range): BP systolic 126–149; BP diastolic 59–95
[2016-11-28 00:45] LABS: CKMB 2.9 U/L (0.0-3.6); CREATINE KINASE 16 UL (21-215)
[2016-11-28 00:46] LABS: TROPONIN-I < 0.017 ng/mL (0.000-0.060)
--- NOTE | 2016-11-28 01:59 | NUR ---
PT LYING IN BED ON RIGHT SIDE, EYES CLOSED, RESPIRATIONS EVEN AND UNLABORED. PT EASILY ROUSABLE TO VERBAL STIMULI. CONTINUE TO MONITOR CLOSELY.
--- NOTE | 2016-11-28 04:39 | NUR ---
PT UP TO BATHROOM WITH MINIMAL ASSIST. PT REQUESTING PRN PAIN MEDICATION. DENIES ANY OTHER NEEDS. PT STILL WEARING O2 VIA NC. PT DID CALL FOR ASSIST TO BATHROOM AND WILL CONTINUE TO DO SO. CONTINUE TO MONITOR CLOSELY. BED LOW, CALL LIGHT IN REACH, SIDE RAILS X 2, HOB 10 DEGREES.
[2016-11-28 05:25] LABS: CALC OSMOLALITY 283 mosm/kg (275-300); CALCIUM 8.2 mg/dL (8.5-10.1); CARBON DIOXIDE 28.5 mmol/L (21.0-32.0); CHLORIDE - SERUM 107 mmol/L (98-107); CREATININE - SERUM 0.7 mg/dL (0.6-1.3); GLUCOSE 127 mg/dL (74-106); SODIUM 142 mmol/L (136-145); UREA NITROGEN 11 mg/dL (7-18)
[2016-11-28 05:26] LABS: POTASSIUM - SERUM 4.6 mmol/L (3.5-5.1); eGFR NON AFRICAN AMERICAN > 90 mL/min (90-120)
[2016-11-28 05:55] LABS: BASOPHILS 0.5 % (0-2); EOSINOPHILS 3.3 % (0-7); HEMATOCRIT 38.5 % (36.0-48.0); HEMOGLOBIN 12.1 g/dL (12-16); LYMPHOCYTES 39.3 % (15-50); MCH 30.4 pg (26.0-34.0); MCHC 31.4 g/dL (31.0-37.0); MCV 96.7 fL (80.0-100.0); MEAN PLATELET VOLUME 11.2 fL (7.4-10.4); NEUTROPHILS 51.9 % (40-80); RBC 3.98 10x6/uL (4.00-5.40); RDW 13.3 % (11.5-14.5)
[2016-11-28 05:57] LABS: PLATELET COUNT 117 10x3/uL (130-400)
--- NOTE | 2016-11-28 07:30 | NUR ---
CHARTS CHECKED. SHIFT ASSESSMENT COMPLETED. INTRODUCED MYSELF TO PT PRIMARY RN FOR TODAYS SHIFT. PT RESTING QUIETLY AND DENIES ANY CURRENT NEEDS AT THIS TIME. CL IN REACH. WILL CTM.
--- NOTE | 2016-11-28 12:24 | NUR ---
PT CALLED REQUESTING PRN PAIN MEDICATION AND WAS PROVIDED WITH IT. PT SITTING UP IN BED EATING LUNCH. DENIES ANY FURTHER NEEDS AT THIS TIME. CL IN REACH. WILL CPOC.
--- NOTE | 2016-11-28 15:00 | NUR ---
EKG COMPLETED ORDERED. EKG NORMAL SINUS.
--- NOTE | 2016-11-28 19:17 | NUR ---
RESUMED CARE OF PT, LYING IN BED WITH EYES CLOSED RESPIRATIONS EVEN AND UNLABORED ON 2LPM VIA NC. RIGHT HAND INFUSING NS @ 75. NO NEEDS NOTED AT THIS TIME. CALL LIGHT IN REACH. WILL CONTINUE TO MONITOR. SEE NURSE ASSESSMENT.
--- NOTE | 2016-11-28 20:36 | NUR ---
PT REFUSED ALL UPDRAFTS.
[2016-11-29] VITALS: BP 136/69
--- NOTE | 2016-11-29 00:53 | NUR ---
LYING IN BED WITH EYES CLOSED, CALL LIGHT IN REACH. WILL CONTINUE WITH PLAN OF CARE.
--- NOTE | 2016-11-29 04:24 | NUR ---
CLONIDINE 0.1MG GIVEN FOR BP 178/98.
[2016-11-29 04:54] LABS: BASOPHILS 0.3 % (0-2); EOSINOPHILS 1.6 % (0-7); HEMATOCRIT 41.8 % (36.0-48.0); HEMOGLOBIN 12.6 g/dL (12-16); IMMATURE GRANULOCYTES 0.3 % (0-5); LYMPHOCYTES 30.3 % (15-50); MCH 30.7 pg (26.0-34.0); MCHC 30.1 g/dL (31.0-37.0); MEAN PLATELET VOLUME 11.8 fL (7.4-10.4); NEUTROPHILS 63.5 % (40-80); RDW 13.5 % (11.5-14.5)
[2016-11-29 05:05] LABS: PLATELET COUNT 146 10x3/uL (130-400); WBC 6.8 10x3/uL (4.8-10.8)
[2016-11-29 05:08] LABS: CALCIUM 8.5 mg/dL (8.5-10.1); CHLORIDE - SERUM 104 mmol/L (98-107); CREATININE - SERUM 0.7 mg/dL (0.6-1.3); GLUCOSE 131 mg/dL (74-106); POTASSIUM - SERUM 4.4 mmol/L (3.5-5.1); SODIUM 142 mmol/L (136-145); eGFR NON AFRICAN AMERICAN > 90 mL/min (90-120)
[2016-11-29 05:09] LABS: CALC OSMOLALITY 282 mosm/kg (275-300); CARBON DIOXIDE 35.8 mmol/L (21.0-32.0); UREA NITROGEN 8 mg/dL (7-18)
[2016-11-29 06:17] VITALS: BP 176/98
--- NOTE | 2016-11-29 07:20 | NUR ---
PT SITTING UP IN BED SLEEPING NO S/S DISTRESS NOTED WILL CONT TO MONITOR
[2016-11-29 07:48] LABS: MAGNESIUM - SERUM 1.9 mg/dL (1.8-2.4); PHOSPHOROUS 4.1 mg/dL (2.5-4.9)
--- NOTE | 2016-11-29 08:30 | NUR ---
DURING AM MED PASS, PT SNORING LOUDLY. HAD TO WAKE PT UP FOR MEDICATIONS. PT CO HEADACHE AND REQUESTING "HYDRO". I TOLD PT THAT IT WAS NOT TIME FOR NORCO UNTIL 1230 BECAUSE MED IS ORDERED Q8HP AND SHE HAD IT AT 0430. PT SAID " OK WELL I AM ALSO VERY ANXIOUS COULD I HAVE AN ATIVAN." IT WAS TIME FOR ATIVAN SO I ADMINISTERED TO PT FOR ANXIETY.
[2016-11-29 08:45] VITALS: BP 141/80
[2016-11-29 08:52] VITALS: BP 163/92; BP 168/96
--- NOTE | 2016-11-29 10:30 | NUR ---
CALLED TO PT ROOM, PT REQUESTING "HYDRO" AGAIN. I AGAIN EXPLAINED TO PT THAT IT WAS NOT DUE UNTIL 1230. PT WAS TALKING TO ME WHILE I WAS HANGING HER FLUIDS AND SHE FELL ASLEEP MID SENTENCE. PT IN NO S/S DISTRESS NOTED. WILL CONT TO MONITOR.
[2016-11-29 12:47] VITALS: BP 158/81
--- NOTE | 2016-11-29 12:56 | NUR ---
PT PULLED IV OUT CATH TIP INTACT. PT TO GO HOME TOMORROW. ASKED ROSALES ROSE IF SHE WANTED ME TO RESITE SHE SAID NO.
--- NOTE | 2016-11-29 16:11 | NUR ---
PT HAS ORDER FOR DC. PT REQUESTING I CALL HER COUSIN JOELLE TO PICK HER UP AND TAKE HER HOME. CALLED PT COUSIN JOELLE, JOELLE SAYS THAT THEY WERE LOOKING INTO SENDING PT TO [facility] R/T PT NOT BEING ABLE TO TAKE CARE OF HERSELF AND JOELLE NOT ABLE TO TAKE CARE OF HER ANYMORE. SPOKE WITH ROSALES ROSE THEY ARE OK WITH THAT. SPOKE WITH EVANGELISTA CASE MANAGEMENT, HE SAID IT IS NOT POSSIBLE WITH HER BEING OBS, BUT SHE CAN REQUEST [facility] THROUGH DR OFFICE. EVANGELISTA CALLING PT COUSIN TO EXPLAIN.
--- NOTE | 2016-11-29 16:36 | NUR ---
WENT OVER DC INSTRUCTIONS WITH PT PT VERBALIZES UNDERSTANDING. PT IS WAITING ON COUSIN TO GET HERE AND THEN WILL GET PT A WHEELCHAIR DOWNSTAIRS.
--- NOTE | 2016-11-29 17:06 | NUR ---
Patient Name: JOJO CORREA Admission Status: ER Accout number: [id number] Admission Date: 11-26-2016 : 1960 Admission Diagnosis: Attending: BARTOLO Current LOS: 3 Anticipated DC Date: 11-29-2016 Planned Disposition: Home Primary Insurance: MEDICARE A & B Discharge Planning Comments: * Is the patient Alert and Oriented? Yes 0 * How many steps to enter\exit or inside your home? 2 0 * PCP DR. LOZADA 0 * Pharmacy [facility] [place] 0 * Preadmission Environment Home with Family 0 * ADLs Independent 0 * Equipment Nebulizer Oxygen 0 * Other Equipment HOME OXYGEN ONLY [facility] - MEDICAL EQUIPMENT PROVIDER 0 * List name and contact numbers for known caregivers / representatives who currently or will assist patient after discharge: JOELLE CORREA, COUSIN, 0 * Community resources currently utilized None 0 * Please name any agencies selected above. NONE 0 * Additional services required to return to the preadmission environment? No 0 * Can the patient safely return to the preadmission environment? Yes 0 * Has this patient been hospitalized within the prior 30 days at any hospital? Yes 0 CM ADVISED BY BEDSIDE NURSE THAT PT HAS DISCHARGE AND PT'S COUSIN DOES NOT WANT TO PICK PT UP, CANNOT TAKE CARE OF HER AT HOME AND REPORTS WANTING PT PLACED AT [facility]. CM SPOKE TO PT IN ROOM. PT REPORTS LIVING AT HOME WITH HER COUSIN. PT REPORTS BEING INDEPENDENT IN HER CARE WITH MEDICAL EQUIPMENT FROM [facility]. PT HAS HAD HOME HEALTH IN THE PAST AND REPORTS NOT NEEDING THEM NOW. CM DISCUSSED AVAILABILITY OF MEDICAL EQUIPMENT AND REHAB SERVICES. PT DENIES NEEDS. CM EXPLAINED THAT HER COUSIN CANNOT TAKE CARE OF HER AND WANTS HER PLACED AT [facility]. PT REPORTS THAT HER COUSIN WANTS PT TO INTO ASSISTED CARE AT THE CARE HOME, PT IS THINKING OF IT BUT HAS NOT YET MADE UP HER MIND. PT ASKED CM TO SEND INFORMATION TO [facility] TO ASSIST HER IF SHE DECIDES TO GO. PT REPORTS PLAN TO RETURN HOME WITH JOELLE. PT SIGNED CHOICE LETTER. PT REPORTS IT IS OK TO DISCUSS HER INFORMATION WITH JOELLE. CM REVIEWED CHART, CALLED JOELLE AT [phone]. CM EXPLAINED THAT PT IS NOT HAVING ANY BALANCE ISSUES OR REHAB NEEDS AT THIS TIME AND THAT LOG CHIPPER OPERATOR CARE MEDICAID WOULD HAVE TO BE APPLIED FOR AND MAY TAKE UP TO 45 DAYS TO PROCESS THE APPLICATION. JOELLE ASKED PELON TO SEND INFORMATION TO [facility] TO ASSIST IN THE PROCESS. JOELLE WILL PROFESSOR OF ARCHITECTURE PT AND IS ON THE WAY FROM [place]. CM FAXED REFERRAL REQUESTING [place] CONTACT PT IN REGARDS TO POSSIBLE ASSISTED CARE ARRANGEMENTS FOR PT. BEDSIDE NURSE NOTIFIED. Brick And Tile Making Machine Operator: David Dutton
[2016-11-29 17:26] VITALS: BP 172/82
--- NOTE | 2016-11-29 18:11 | NUR ---
PT WAS WHEELED DOWNSTAIRS BY MARTELL TO MEET HER RIDE
--- NOTE | 2016-11-29 18:19 | NUR ---
ZORAN BRISENO PICKED HER UP
== END 2016-11-29 18:21 | disposition home or self-care (01) ==
LOC: D.ER 20:23 → D.M2 23:28 → OBSVTIME 23:54 → D.M2 11-29 18:21
PROVIDERS: Emergency Medicine; ADMIT Family Medicine
DX: I95.9 Hypotension, unspecified (principal); J44.9 Chronic obstructive pulmonary disease, unspecified; F31.9 Bipolar disorder, unspecified; F60.3 Borderline personality disorder; E03.9 Hypothyroidism, unspecified; M79.7 Fibromyalgia; G47.33 Obstructive sleep apnea (adult) (pediatric); Z87.891 Personal history of nicotine dependence

== ENCOUNTER 2018-01-11 10:15 | Emergency (ER) | payer MEDICARE ==
[~2018-01-11] VITALS: Ht 160 cm; Wt 96.8 kg
[2018-01-11 10:21] VITALS: Ht 160 cm; Wt 96.8 kg
[2018-01-11] MEDS ORDERED: PREVACID30 MG PO (10:26)
[2018-01-11 11:02] LABS: BASOPHILS 0.4 % (0-2); EOSINOPHILS 4.6 % (0-7); HEMATOCRIT 38.8 % (36.0-48.0); HEMOGLOBIN 12.4 g/dL (12-16); IMMATURE GRANULOCYTES 0.2 % (0-5); MEAN PLATELET VOLUME 11.1 fL (7.4-10.4); MONOCYTES 7.3 % (2-11); NEUTROPHILS 68.5 % (40-80); PLATELET COUNT 118 10x3/uL (130-400); RDW 15.2 % (11.5-14.5)
[2018-01-11 11:04] LABS: APPEARANCE CLEAR (CLEAR); BACTERIA FEW /hpf (NONE SEEN); BILIRUBIN NEGATIVE (NEGATIVE); COLOR YELLOW (YELLOW); EPITHELIAL CELLS 0-5 /hpf (0-5); GLUCOSE NEGATIVE (NEGATIVE); KETONE NEGATIVE (NEGATIVE); MUCUS <1+ /lpf (NONE SEEN); NITRITE NEGATIVE (NEGATIVE); PROTEIN NEGATIVE (NEGATIVE); SPECIFIC GRAVITY 1.005 (1.005-1.020); UROBILINOGEN NORMAL (NORMAL)
[2018-01-11 11:05] LABS: WHITE CELLS - URINE 0-5 /hpf (0-5)
[2018-01-11 11:23] LABS: HELICOBACTER PYLORI IGG NEGATIVE (NEGATIVE)
[2018-01-11 11:24] LABS: ALBUMIN 3.2 g/dL (3.4-5.0); ALKALINE PHOSPHATASE 63 U/L (46-116); ALT (SGPT) 35 U/L (10-68); CALC OSMOLALITY 281 mosm/kg (275-300); CALCIUM 8.4 mg/dL (8.5-10.1); CARBON DIOXIDE 36.8 mmol/L (21.0-32.0); CHLORIDE - SERUM 104 mmol/L (98-107); CREATININE - SERUM 0.8 mg/dL (0.6-1.3); GLUCOSE 133 mg/dL (74-106); POTASSIUM - SERUM 4.2 mmol/L (3.5-5.1); SODIUM 141 mmol/L (136-145); UREA NITROGEN 11 mg/dL (7-18); eGFR NON AFRICAN AMERICAN 78 mL/min (90-120)
[2018-01-11 11:45] LABS: CKMB 0.5 U/L (0.0-3.6); CREATINE KINASE 54 UL (21-215); TROPONIN-I < 0.017 ng/mL (0.000-0.060)
[2018-01-11] MEDS ORDERED: PROTONIX40 MG PO (13:47)
[2018-01-11 14:09] VITALS: BP 104/60
== END 2018-01-11 14:54 ==
LOC: D.ER 10:15
PROVIDERS: Family Medicine
DX: K21.9 Gastro-esophageal reflux disease without esophagitis (principal); R10.13 Epigastric pain; R11.0 Nausea; E07.9 Disorder of thyroid, unspecified; J44.9 Chronic obstructive pulmonary disease, unspecified; J45.909 Unspecified asthma, uncomplicated; F17.200 Nicotine dependence, unspecified, uncomplicated; Z99.81 Dependence on supplemental oxygen